=== PATIENT | female | born 1970 | race Caucasian/White ===

== ENCOUNTER 2017-01-16 14:24 | Emergency (ER) | payer BC, MEDICAID ==
[2017-01-16 14:43] VITALS: RESP 18; TEMP 97.9
--- NOTE | 2017-01-16 15:19 | UCPHY ---
H & P Time Seen by Provider: 01/16/17 14:59 Patient Type: Established HPI/ROS: HPI Blood in stool. 46-year-old female by private vehicle. This patient reports that over the last 2 days she has had 3 bowel movements with gross blood in the toilet bowl. She denies any rectal pain. She does have a history of hemorrhoids. She has had some blood on the toilet paper in the past but never the amount of blood described as turning the toilet bowl water red. She reports today she had a normal bowel movement though with no blood in her stool or blood in the toilet bowl that she could see. She has not had any gross rectal bleeding. She denies any abdominal pain. No rectal pain. No vaginal bleeding. She is not menstruating. No history of trauma. No other complaints. ROS: Constitutional: No fever, no chills. No weakness. Eyes: No discharge. No changes in vision. ENT: No sore throat. No nasal congestion or rhinorrhea. Respiratory: No cough. No shortness of breath. Cardiac: No chest pain, no palpitations. Gastrointestinal: No abdominal pain, no vomiting, no diarrhea. Genitourinary: No hematuria. No dysuria or increased frequency with urination. As above. Musculoskeletal: No back pain. No neck pain. No myalgias or arthralgias. Skin: No rashes. Neurological: No headache. No focal weakness or altered sensation. Past medical history: No significant past medical history. She is not on any antiplatelet or anticoagulant medications. Social history: Here by herself. Nonsmoker. No alcohol. Physical Exam: General Appearance: Alert, no distress. This patient is responding to questions appropriately and in full sentences. This patient appears well- hydrated and well-nourished. Eyes: Pupils equal and round no pallor or injection. No lid edema, erythema or injection. Respiratory: There are no retractions, lungs are clear to auscultation with good air movement bilaterally. Cardiovascular: Regular rate and rhythm. No murmur. Gastrointestinal: Abdomen is soft and nontender, no masses, bowel sounds normal. No focal tenderness at McBurney's point. No Hein sign. Rectal exam: Some external hemorrhoids. No anal fissures. Digital exam; normal tone, no gross blood, dark brown stool. No masses palpated. Neurological: Motor sensory function is grossly intact. Cranial nerves are normal. Gait is normal. Skin: Warm and dry, no rashes. Musculoskeletal: Neck is supple and nontender. Extremities are symmetrical. All joints range without pain or impingement. Psychiatric: No agitation. No depression. Database: EKG: Imaging: Procedures: Emergency department course: IV placed. Vital signs were reviewed and are normal. She reports that her blood pressure does run low. Stool sent for occult blood testing, CBC and coagulation profile will be obtained. If blood work unremarkable, plan will be to have her follow up with a nurse receptionist for a colonoscopy. 3:50 p.m., patient re-evaluated. CBC and coagulation profile normal. Stool Hemoccult positive. Results of these tests were discussed with the patient. She has had no active bleeding in the emergency department. Plan will be to have her follow up with Gastroenterology either through direct emergency depart referral or through her primary care physician. I explained that she needed a colonoscopy. She feels comfortable going home. She understands for follow-up. Return to emergency department precautions reviewed. All of her questions were answered. She was discharged in good condition. Differential Diagnosis: The differential diagnosis on this patient includes but is not limited to internal hemorrhoids, diverticulosis, anal fissure, malignancy. This represents a partial list of diagnoses considered. These considerations are based on history, physical exam, past history, reassessment and diagnostic testing. Smoking Status: Never smoked Constitutional: Initial Vital Signs Temperature (C) 36.6 C 01/16/17 14:39 Heart Rate 75 01/16/17 14:39 Respiratory Rate 18 01/16/17 14:39 Blood Pressure 98/78 L 01/16/17 14:39 O2 Sat (%) 98 01/16/17 14:39 O2 Delivery Mode Room Air Allergies/Adverse Reactions: Penicillins Allergy (Verified 01/16/17 14:39) Sulfa (Sulfonamide Antibiotics) Allergy (Verified 01/16/17 14:39) Home Medications: Medication Instructions Recorded PARoxetine HCL [Paxil 10mg (*)] 01/16/17 Medical Decision Making - Data Points Laboratory Results: Laboratory Results 01/16/17 15:15 01/16/17 01/16/17 01/16/17 15:15 15:15 15:15 WBC 7.94 10^3/uL 10^3/uL (3.80-9.50) RBC 4.35 10^6/uL 10^6/uL (4.18-5.33) Hgb 13.9 g/dL g/dL (12.6-16.3) Hct 39.8 % % (38.0-47.0) MCV 91.5 fL fL (81.5-99.8) MCH 32.0 pg pg (27.9-34.1) MCHC 34.9 g/dL g/dL (32.4-36.7) RDW 12.2 % % (11.5-15.2) Plt Count 261 10^3/uL 10^3/uL (150-400) MPV 10.7 fL fL (8.7-11.7) Neut % (Auto) 53.8 % % (39.3-74.2) Lymph % (Auto) 36.6 % % (15.0-45.0) [place] % (Auto) 5.5 % % (4.5-13.0) Eos % (Auto) 3.1 % % (0.6-7.6) Baso % (Auto) 0.9 % % (0.3-1.7) Nucleat RBC Rel Count 0.0 % % (0.0-0.2) Absolute Neuts (auto) 4.26 10^3/uL 10^3/uL (1.70-6.50) Absolute Lymphs (auto) 2.91 10^3/uL 10^3/uL (1.00-3.00) Absolute Monos (auto) 0.44 10^3/uL 10^3/uL (0.30-0.80) Absolute Eos (auto) 0.25 10^3/uL 10^3/uL (0.03-0.40) Absolute Basos (auto) 0.07 10^3/uL 10^3/uL (0.02-0.10) Absolute Nucleated RBC 0.00 10^3/uL 10^3/uL (0-0.01) Immature Gran % 0.1 % % (0.0-1.1) Immature Gran # 0.01 10^3/uL 10^3/uL (0.00-0.10) PT 13.1 SEC SEC (12.0-15.0) INR 1.02 (0.83-1.16) APTT 29.3 SEC SEC (23.0-38.0) Stool Occult Bld Scrn POSITIVE H (NEGATIVE) Departure - Departure Disposition: Home, Routine, Self-Care Clinical Impression: Bloody feces Condition: Good Instructions: Rectal Bleeding (ED) Additional Instructions: Read and follow provided instructions. Follow-up with Gastroenterology, Dr. Jonathan Carreno or 1 of his partners in 1-2 days for re-evaluation And scheduling of a colonoscopy.. Return to the emergency department for rectal bleeding, abdominal pain, fever or other serious concerns. Referrals: Yudith Melara MD [Primary Care Provider] - As per Instructions Jonathan Carreno MD, FACG [Medical Doctor] - As per Instructions - PQRS PQRS Measurement: Not applicable.
[2017-01-16 15:37] LABS: % IMMATURE GRANULYOCYTES 0.1 % (0.0-1.1); ABSOLUTE IMMATURE GRANULOCYTES 0.01 10^3/uL (0.00-0.10); ADD DIFF? NO; ADD MORPH? NO; ADD SCAN? NO; ATYPICAL LYMPHOCYTE FLAG 10 (0-99); FRAGMENT RBC FLAG 0 (0-99); HEMATOCRIT 39.8 % (38.0-47.0); HEMOGLOBIN 13.9 g/dL (12.6-16.3); LEFT SHIFT FLG 0 (0-99); LIPEMIA HEMOLYSIS FLAG 90 (0-99); MEAN CELL HEMOGLOBIN CONCENTR. 34.9 g/dL (32.4-36.7); MEAN CELL VOLUME 91.5 fL (81.5-99.8); MEAN PLATELET VOLUME 10.7 fL (8.7-11.7); PLATELET CLUMPS FLAG 0 (0-99); PLATELET COUNT 261 10^3/uL (150-400); RED BLOOD CELL COUNT 4.35 10^6/uL (4.18-5.33); RED CELL DISTRIBUTION WIDTH 12.2 % (11.5-15.2)
[2017-01-16 15:48] LABS: INR 1.02 (0.83-1.16); PROTIME(PATIENT) 13.1 SEC (12.0-15.0)
[2017-01-16 15:49] LABS: APTT 29.3 SEC (23.0-38.0)
[2017-01-16 16:29] VITALS: BP 128/75; PULSE 72; O2SAT 94
== END 2017-01-16 16:30 | disposition home or self-care (01) ==
LOC: CED 14:24
DX: K92.1 Melena (principal)
CPT/HCPCS: 82270-PO; 85025-PO; 85610-PO; 85730-PO; 99214-PO; G0463-PO

== ENCOUNTER → 2018-08-11 | Outpatient (CLI) | payer MEDICAID | LOC: CIMAGING 11:59 | PROVIDERS: ATTEND Family Medicine | DX: Z12.31 Encounter for screening mammogram for malignant neoplasm of breast (principal) ==